=== PATIENT | female | born 2005 | race Caucasian/White ===

== ENCOUNTER 2025-02-27 19:19 | Emergency (ER) | payer BC ==
[2025-02-27] MEDS ORDERED: Ibuprofen 200 MG TAB ONE (20:14)
[2025-02-27 20:38] LABS: Glucose, Urine (Dipstick) Normal (Negative); Leukocyte Negative (Negative); Protein, Urine (Dipstick) Negative (Neg-Trace); Specific Gravity, Urine 1.015 (1.005-1.030)
[2025-02-27 20:39] LABS: Pregnancy Test - Urine (BHCG) Negative (Negative); Pregu Control Background? CLEAR/WHITE (CLR/WHITE); Pregu Control Bar Appear? YES (CONTROL BAR)
[2025-02-27 20:46] LABS: Bacteria/HPF 1+ HPF (None Seen); CAUTI Indications for Culture Pelvic or flank pain; RBC/HPF 0-3 HPF (0-3); WBC/HPF 0-3 HPF (0-3)
[2025-02-27 20:47] LABS: Urine Culture Reflex No No
== END 2025-02-27 20:40 | disposition home or self-care (01) ==
LOC: CSHERS 19:19
DX: N83.202 Unspecified ovarian cyst, left side (principal); R10.32 Left lower quadrant pain
CPT/HCPCS: 74176; 76856; 80053; 81001; 81025; 83690; 84703; 85025; 96374; 96375; J1885